=== PATIENT | female | born 1970 | race Caucasian/White ===

== ENCOUNTER → 2019-08-16 | Outpatient (CLI) | payer OTHER ==
--- NOTE | 2019-08-16 14:48 | Diagnostic Imaging Report ---
PROCEDURE: US left lower extremity venous. TECHNIQUE: Multiple real-time grayscale images were obtained over the left lower extremity in various projections. Additional duplex Doppler and color Doppler images were also obtained. INDICATION: Left knee and calf pain. FINDINGS: There is no evidence of left lower extremity DVT. Left lower extremity deep venous system shows normal compressibility with normal response to augmentation and Valsalva. No fluid collection or mass is seen. IMPRESSION: No evidence of left lower extremity DVT. Dictated by: Dictated on workstation # [id number]
== END ==
LOC: RAD 13:57
PROVIDERS: ATTEND Physician Assistant
DX: M79.605 Pain in left leg (principal); M25.562 Pain in left knee

== ENCOUNTER → 2019-08-23 | Outpatient (CLI) | payer OTHER ==
[~2019-08-23] MED LIST: AMLO5TAB9; ATEN25TA; ATEN50TA; CLON0.5T13; FAMO20TA5; GABA-488; HYDR-3812; HYDR-4226 PO; HYDR25TA4; METF-399; PANT40TA3; PRD20T
--- NOTE | 2019-08-23 19:13 | Diagnostic Imaging Report ---
EXAMINATION: Left knee 3 views HISTORY: Knee pain FINDINGS: No comparison available. Alignment is normal. No fracture is seen. Joint spaces are normal. No knee joint effusion. IMPRESSION: 1. No fracture. Dictated by: Dictated on workstation # [id number]
== END ==
LOC: RAD 18:45
PROVIDERS: ATTEND Physician Assistant
DX: M25.562 Pain in left knee (principal)
CPT/HCPCS: 73562

== ENCOUNTER 2019-08-28 14:16 | Emergency (ER) | payer OTHER ==
[~2019-08-28] VITALS: Ht 172 cm; Wt 115.9 kg
[2019-08-28] MEDS ORDERED: METF-399 (14:46)
[2019-08-28] MEDS ORDERED: HYDR-3812 (14:46)
[2019-08-28] MEDS ORDERED: PANT40TA3 (14:46)
[2019-08-28] MEDS ORDERED: FAMO20TA5 (14:46)
[2019-08-28] MEDS ORDERED: AMLO5TAB9 (14:46)
[2019-08-28] MEDS ORDERED: PRD20T (14:46)
[2019-08-28] MEDS ORDERED: CLON0.5T13 (14:46)
[2019-08-28] MEDS ORDERED: ATEN50TA (14:46)
[2019-08-28] MEDS ORDERED: HYDR25TA4 (14:46)
[2019-08-28] MEDS ORDERED: ATEN25TA (14:46)
[2019-08-28] MEDS ORDERED: GABA-488 (14:46)
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
--- NOTE | 2019-08-28 15:49 | Diagnostic Imaging Report ---
INDICATION: Fall and felt knee pop. TIME OF EXAM: 03:18 p.m. FINDINGS: Three views of the left knee were obtained. Alignment is normal. Joint spaces are well maintained. Articular surfaces are smooth. No fracture or dislocation is seen. There appears to be a small joint effusion. IMPRESSION: Small joint effusion. No acute bony abnormality is detected. Dictated by: Dictated on workstation # [id number]
[2019-08-28 16:01] VITALS: BP 158/101
[2019-08-28] MEDS ORDERED: HYDR-4226 PO (16:01)
== END 2019-08-28 16:01 | disposition home or self-care (01) ==
LOC: EDUNIT# 14:16 → ER 14:17
DX: M23.92 Unspecified internal derangement of left knee (principal); E11.9 Type 2 diabetes mellitus without complications; M06.9 Rheumatoid arthritis, unspecified; Z88.8 Allergy status to other drugs, medicaments and biological substances; Z79.51 Long term (current) use of inhaled steroids; Z90.710 Acquired absence of both cervix and uterus; X58.XXXA Exposure to other specified factors, initial encounter; Y92.009 Unspecified place in unspecified non-institutional (private) residence as the place of occurrence of the external cause; Y93.01 Activity, walking, marching and hiking
CPT/HCPCS: 73562

== ENCOUNTER → 2019-08-31 | Outpatient (CLI) | payer OTHER ==
--- NOTE | 2019-08-31 16:22 | Diagnostic Imaging Report ---
PROCEDURE: MRI left joint lower extremity without contrast. TECHNIQUE: Multiplanar, multisequence non contrast-enhanced MRI of the left lower extremity was accomplished. INDICATION: Knee pain. FINDINGS: There are no prior MRI examinations available for comparison. The plain film examination of the left knee performed on 08/28/2019 failed to show any sign of an acute abnormality. There was a small joint effusion present, however. On the proton-dense fat-saturated sagittal series of this exam, there is an irregular band of increased signal extending through the inferior articular surface of the posterior horn of the medial meniscus. This would be consistent with a tear. The lateral meniscus is intact. The anterior and posterior cruciate ligaments, the quadriceps and infrapatellar tendons, the collateral ligaments, the biceps femoris tendon, and the iliotibial band show no sign of an acute injury. The medial and lateral retinacula appear to be intact. There is no abnormal signal arising from the osseous structures to suggest bone edema or a fracture. There is moderate degenerative disease involving the articular surfaces of both the medial and lateral femoral condyles with the medial femoral condyle the more severely affected. The patellofemoral space is well maintained. There is a small joint effusion present. There is no sign of a Anderson's cyst. However, there is a small collection of cysts along the posteromedial aspect of the medial femoral condyle. These have a conglomerate size of 1.0 x 1.8 cm. IMPRESSION: 1. The posterior horn of the medial meniscus is torn. The lateral meniscus is intact. 2. The major ligaments and tendons show no evidence for an acute injury. 3. There is no sign of bone edema. There is degenerative disease involving the articular surfaces of the medial and lateral femoral condyles with the medial femoral condyle being the more severely affected. 4. There is a small joint effusion present. There is also a small collection of cysts in the soft tissues posterior to the medial femoral condyle. Dictated by: Dictated on workstation # [id number]
== END ==
LOC: RAD 14:39
PROVIDERS: ATTEND Physician Assistant
DX: M23.222 Derangement of posterior horn of medial meniscus due to old tear or injury, left knee (principal); M17.12 Unilateral primary osteoarthritis, left knee
CPT/HCPCS: 73721

== ENCOUNTER → 2019-10-25 | Outpatient (CLI) | payer OTHER ==
[~2019-10-25] VITALS: Ht 172 cm; Wt 118.0 kg
[~2019-10-25] MED LIST changes: +CATHETER FLUSH 10 ML SYR IV PRN; +REGADENOSON 0.4 MG/5 ML SYR (LEXISCAN) IV ONE
[2019-10-25 09:02] VITALS: BP 147/91
== END ==
LOC: CARD 07:37
PROVIDERS: ATTEND Internal Medicine Interventional Cardiology
DX: Z01.810 Encounter for preprocedural cardiovascular examination (principal); E11.9 Type 2 diabetes mellitus without complications; I10 Essential (primary) hypertension; R07.2 Precordial pain; R06.02 Shortness of breath
CPT/HCPCS: 78452; 93017; 93306

== ENCOUNTER → 2020-04-22 | Outpatient (CLI) | payer OTHER ==
[~2020-04-22] MED LIST changes: +ACHD5005; -CATHETER FLUSH 10 ML SYR IV PRN; -CLON0.5T13; +CLON0.5T4; -HYDR-3812; -REGADENOSON 0.4 MG/5 ML SYR (LEXISCAN) IV ONE
== END ==
LOC: LABNPT 08:19
PROVIDERS: ATTEND Internal Medicine
DX: Z20.828 Contact with and (suspected) exposure to other viral communicable diseases (principal)
CPT/HCPCS: 87635

== ENCOUNTER → 2020-10-07 | Outpatient (CLI) | payer OTHER ==
[~2020-10-07] MED LIST changes: +AMLO-250; -AMLO5TAB9; -PANT40TA3; +PANT40TA52
--- NOTE | 2020-10-07 16:18 | Diagnostic Imaging Report ---
EXAMINATION: MR imaging brain without contrast. TECHNIQUE: Multiplanar, multisequence MR imaging of the brain was performed without contrast. HISTORY: Headache. COMPARISON: None available. FINDINGS: The tineo-white matter differentiation is normal. No mass effect or midline shift. The ventricles are normal in size and configuration. Basilar cisterns are patent. No evidence for acute ischemia on diffusion weighted images. No hemorrhage is seen on the susceptibility weighted images. There are no intra- or extra-axial fluid collections. The pituitary gland and posterior fossa are normal. Upper cervical spinal cord signal intensity is normal. Thalamus and basal ganglia are normal. Normal flow voids are seen in the intracranial vasculature. There are scattered non-specific T2 hyperintensities in the white matter, likely reflecting chronic small vessel ischemic changes. There are bilateral petrous apex cephaloceles. The marrow signal in the calvarium is normal. The orbits are normal. Paranasal sinuses are normal. Mastoid air cells are clear. No soft tissue abnormality is seen. IMPRESSION: 1. No acute intracranial abnormality. Dictated by: Dictated on workstation # [id number]
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
== END ==
LOC: RAD 15:03
PROVIDERS: ATTEND Physician Assistant
DX: M25.78 Osteophyte, vertebrae (principal); M54.16 Radiculopathy, lumbar region; R51.9 Headache, unspecified
CPT/HCPCS: 70551; 72141

== ENCOUNTER → 2020-10-08 | Outpatient (CLI) | payer OTHER ==
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
== END ==
LOC: RAD 11:00
PROVIDERS: ATTEND Physician Assistant
DX: M47.816 Spondylosis without myelopathy or radiculopathy, lumbar region (principal); M48.061 Spinal stenosis, lumbar region without neurogenic claudication; M25.571 Pain in right ankle and joints of right foot; V89.2XXA Person injured in unspecified motor-vehicle accident, traffic, initial encounter
CPT/HCPCS: 72148; 73610

== ENCOUNTER → 2021-06-24 | Outpatient (CLI) | payer BC ==
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
== END ==
LOC: RAD 07:00
PROVIDERS: ATTEND Physician Assistant
DX: K76.0 Fatty (change of) liver, not elsewhere classified (principal)
CPT/HCPCS: 76705

== ENCOUNTER → 2022-07-16 | Outpatient (CLI) | payer OTHER ==
[2022-07-16 10:41] LABS: ABSOLUTE RETIC # 80 10e9/uL (24-90); BASOPHILS # (AUTO) 0.1 10^3/uL (0.0-0.1); BASOPHILS % (AUTO) 1 % (0-10); EOSINOPHILS # (AUTO) 0.2 10^3/uL (0.0-0.3); EOSINOPHILS % (AUTO) 2 % (0-10); HEMATOCRIT 40 % (35-52); LYMPHOCYTES # (AUTO) 3.7 10^3/uL (1.0-4.0); LYMPHOCYTES % (AUTO) 32 % (12-44); MEAN CORPUSCULAR HEMOGLOBIN 27 pg (25-34); MEAN CORPUSCULAR HGB CONC 32 g/dL (32-36); MEAN CORPUSCULAR VOLUME 85 fL (80-99); MEAN PLATELET VOLUME 11.1 fL (9.0-12.2); MONOCYTES # (AUTO) 0.8 10^3/uL (0.0-1.0); MONOCYTES % (AUTO) 7 % (0-12); NEUTROPHILS # (AUTO) 6.6 10^3/uL (1.8-7.8); NEUTROPHILS % (AUTO) 58 % (42-75); PLATELET COUNT 215 10^3/uL (130-400); RETICULOCYTE % 1.69 % (0.50-2.40); WHITE BLOOD COUNT 11.4 10^3/uL (4.3-11.0)
[2022-07-16 11:10] LABS: BAND NEUTROPHILS 0 %; NEUTROPHILS % (MANUAL) 51 %
[2022-07-16 11:11] LABS: ANISOCYTOSIS SLIGHT; BASOPHILS % (MANUAL) 0 %; EOSINOPHILS % (MANUAL) 3 %; LYMPHOCYTES % (MANUAL) 37 %; MONOCYTES % (MANUAL) 9 %
== END ==
LOC: LAB 10:20
PROVIDERS: ATTEND Internal Medicine
DX: D72.829 Elevated white blood cell count, unspecified (principal)
CPT/HCPCS: 36415; 85007; 85027; 85045; 85055

== ENCOUNTER → 2022-08-17 | Outpatient (CLI) | payer BC, OTHER ==
--- NOTE | 2022-08-17 11:34 | Diagnostic Imaging Report ---
INDICATION: Routine screening. No prior mammograms are available for comparison. This is a baseline study. 2-D and 3-D bilateral screening mammography was performed with CAD. Scattered fibroglandular densities are identified bilaterally. There is a nodule in the upper and outer aspect of the right breast at mid depth. This may represent intraparenchymal lymph node. Additional views are recommended for further evaluation. Benign nodules in the far lateral and posterior right breast are noted as well and likely intraparenchymal lymph nodes. There are benign calcifications bilaterally. No malignant-appearing microcalcifications are seen. Axillae are unremarkable. IMPRESSION: Nodular density in the upper outer right breast mid depth. Additional views recommended for further evaluation. ACR BI-RADS Category 0: Incomplete. (Needs additional imaging evaluation). Result letter will be mailed to the patient. Note: At least 10% of breast cancer is not imaged by mammography. BI-RADS 0 Dictated by: Dictated on workstation # [id number]
--- NOTE | 2022-08-17 14:35 | Diagnostic Imaging Report ---
PROCEDURE: MRI right joint lower extremity without contrast. TECHNIQUE: Multiplanar, multisequence non contrast-enhanced MRI of the right lower extremity was accomplished. INDICATION: Right hip pain COMPARISON: None available. FINDINGS: Right hip: No high-grade chondromalacia or hip effusion. No chondral labral separation or para-labral cyst. Bones: No avascular necrosis in the femoral heads. No bone marrow edema in the proximal femurs or pelvis that would suggest stress reaction. There is no sacroiliitis or concerning marrow replacing process. Muscles and tendons: The right gluteus medius and minimus each have partial-thickness tears along their insertion on the anterior and middle facets of the greater trochanter. No associated fluid collection to indicate bursitis. Proximal hamstring complexes are intact. Distal iliopsoas tendons and muscles are intact. Adductor musculature is normal. Other: No free pelvic fluid. No pelvic or inguinal lymphadenopathy. IMPRESSION: 1. Partial-thickness tear of the right gluteus medius and minimus at the insertion of the greater trochanter. This could be a source of focal pain. There is no associated bursitis. 2. No avascular necrosis or stress fracture. Dictated by: Dictated on workstation # [id number]
--- NOTE | 2022-08-17 15:28 | Diagnostic Imaging Report ---
INDICATION: Screening for osteoporosis, rheumatoid arthritis, postmenopausal state. COMPARISON: None available. FINDINGS: AP Spine L2-L4: [BMD (g/cm2): 1.431] [T-Score: 1.9] [Z-Score: 1.2] [BMD Previous: NA] [BMD % Change: NA] LT Hip Neck: [BMD (g/cm2): 1.150] [T-Score: 0.8] [Z-Score: 0.8] LT Hip Total: [BMD (g/cm2):1.413] [T-Score:3.2] [Z-Score: 2.9] [BMD Previous: NA] [BMD % Change: NA] RT Hip Neck: [BMD (g/cm2):1.207] [T-Score:1.2] [Z-Score:1.2] RT Hip Total: [BMD (g/cm2):1.417] [T-score:3.2] [Z-Score:2.9] [BMD Previous:NA] [BMD % Change:NA] *Indicates significant change from prior examination based on 95% confidence level. World Health Organization criteria for BMD interpretation classify patients as Normal (T-score at or above -1.0), Osteopenic (T-score between -1.0 and -2.5) or Osteoporotic (T-score at or below -2.5). LIMITATIONS AND MODIFICATION: None. IMPRESSION: 1. Normal bone mineral density. 2. Baseline examination. 3. See below National Osteoporosis Foundation guidelines on when to potentially initiate pharmacologic therapy. Based on the National Osteoporosis Foundation Guidelines, pharmacologic treatment should be initiated in any of the following, unless clinical conditions suggest otherwise: * Any patient with prior fragility fracture of the hip or vertebrae. A spine fracture indicates 5X risk for subsequent spine fracture and 2X risk for subsequent hip fracture. * Osteoporosis (T-score <-2.5). * Postmenopausal women and men age 50 and older with low bone mass/osteopenia (T-score between -1.0 and -2.5) by DXA and 10-year major osteoporotic fracture greater than 20% or a 10-year probability of hip fracture greater than 3%. These fracture risks are supplied above in the FRAX score, if applicable. * Clinician judgement and/or patient preferences may indicate treatment for people with 10-year fracture probabilities above or below these levels. Dictated by: Dictated on workstation # [id number]
== END ==
LOC: RAD 08:13
PROVIDERS: ATTEND Physician Assistant
DX: Z12.31 Encounter for screening mammogram for malignant neoplasm of breast (principal); Z13.820 Encounter for screening for osteoporosis; S76.011A Strain of muscle, fascia and tendon of right hip, initial encounter; X58.XXXA Exposure to other specified factors, initial encounter; Z78.0 Asymptomatic menopausal state
CPT/HCPCS: 73721; 77063; 77067; 77080

== ENCOUNTER → 2022-09-09 | Outpatient (CLI) | payer OTHER ==
--- NOTE | 2022-09-09 13:57 | Diagnostic Imaging Report ---
Indication: Right breast density. Patient presents for additional views. Correlation is made with screening study from 08/17/2022. Unilateral right 2-D and 3-D diagnostic mammography was performed. This includes spot compression CC and ML views as well as conventional 90 degree lateral views. Additional views show a persistent circumscribed nodule in the outer right breast at mid depth which has the appearance of a lymph node. No malignant-appearing microcalcifications are seen. IMPRESSION: BI-RADS 0 Circumscribed nodule outer right breast mid depth, likely intraparenchymal lymph node. Further evaluation with ultrasound is recommended and will be performed today. ACR BI-RADS Category 0: Incomplete. (Needs additional imaging evaluation). Result letter will be mailed to the patient. Note: At least 10% of breast cancer is not imaged by mammography. Dictated by: Dictated on workstation # [id number]
--- NOTE | 2022-09-09 15:05 | Diagnostic Imaging Report ---
Indication: Right breast density. Correlation is made with a diagnostic mammogram earlier the same day and screening mammogram from 08/17/2022. Sonographic interrogation of the outer right breast was performed. There is an intraparenchymal lymph node at the 9:00 location, 8-9 cm from the nipple, measuring 10 mm x 5 mm x 6 mm. This likely accounts for the mammographic density. No other masses are identified. IMPRESSION: BI-RADS Category 2. Intraparenchymal lymph node, outer right breast, accounting for the mammographic density. The patient may return to routine annual screening mammography. ACR BI-RADS Category 2: Benign findings. Result letter will be mailed to the patient. Note: At least 10% of breast cancer is not imaged by mammography. Dictated by: Dictated on workstation # [id number]
== END ==
LOC: RAD 11:55
PROVIDERS: ATTEND Physician Assistant
DX: N63.15 Unspecified lump in the right breast, overlapping quadrants (principal)
CPT/HCPCS: 76642; 77065; G0279